=== PATIENT | male | born 1995 | race Caucasian/White ===

== ENCOUNTER 2017-12-07 23:16 | Emergency (ER) | payer BC ==
[2017-12-07 23:34] VITALS: RESP 18
[2017-12-07] MEDS ORDERED: KETOROLAC 60 MG/2 ML VIAL IM STA (23:46)
[2017-12-07] MEDS ORDERED: ORPHENADRINE 30 MG/ML 2 ML VIAL IM STA (23:46)
[2017-12-08] MEDS ORDERED: MORPHINE SULFATE 4 MG/ML SYRINGE IM STA (00:40)
--- NOTE | 2017-12-08 00:56 | ED ---
Back Pain HPI - General Chief Complaint: Back Pain/Injury Stated Complaint: Back Pain Time Seen by Provider: 12/07/17 23:36 Source: patient Limitations: no limitations - History of Present Illness Initial Comments: This patient is a 22-year-old man who presents to be evaluate for right lumbar back pain. The patient states that about 2-3 days ago while he was working he lifted something and had some mild pain in this right lower back. He states that he was doing fairly well known earlier today had been playing table tennis with a friend and aggravated the injury. Patient denies any change in bladder or bowel function. He denies saddle anesthesia. There is no weakness or numbness of the legs. The pain is constant, aching, severe. Pain gets worse with certain postures and is better if he remains still. MD Complaint: back injury -: days(s) Place: work Radiation: none Severity: severe Quality: aching Consistency: constant Improves With: none Worsens With: movement Associated Symptoms: denies other symptoms - Related Data Home Medications Medication Instructions Recorded Confirmed Ibuprofen [Motrin Ib] 400 mg PO Q6HR PRN 12/07/17 12/07/17 Previous Rx's Medication Instructions Recorded Ibuprofen [Motrin] 600 mg PO Q8HR PRN #20 tab 12/08/17 Methocarbamol [Robaxin-750] 750 mg PO TID PRN #30 tablet 12/08/17 Allergies Allergy/AdvReac Type Severity Reaction Status Date / Time No Known Allergies Allergy Verified 12/07/17 23:41 Review of Systems ROS Statement: Those systems with pertinent positive or pertinent negative responses have been documented in the HPI. ROS Other: All systems not noted in ROS Statement are negative. Constitutional: Denies: fever, chills, weakness Respiratory: Denies: cough, dyspnea Cardiovascular: Denies: chest pain Gastrointestinal: Denies: abdominal pain, vomiting, diarrhea Genitourinary: Denies: dysuria, hematuria Skin: Denies: rash Neurological: Denies: headache, weakness, numbness, paresthesias Past Medical History Past Medical History: No Reported History History of Any Multi-Drug Resistant Organisms: None Reported Past Surgical History: Tonsillectomy Past Psychological History: No Psychological Hx Reported Smoking Status: Never smoker Past Alcohol Use History: Occasional Past Drug Use History: None Reported General Exam Limitations: no limitations General appearance: alert, in no apparent distress Head exam: Present: atraumatic, normocephalic Eye exam: Present: normal appearance Neck exam: Present: normal inspection, full ROM Respiratory exam: Present: normal lung sounds bilaterally. Absent: respiratory distress, wheezes, rales, rhonchi, stridor Cardiovascular Exam: Present: regular rate, normal rhythm, normal heart sounds. Absent: systolic murmur, diastolic murmur, rubs, gallop GI/Abdominal exam: Present: soft. Absent: distended, tenderness, guarding, rebound, pulsatile mass Extremities exam: Present: normal inspection, normal capillary refill. Absent: pedal edema, calf tenderness Back exam: Present: normal inspection, paraspinal tenderness. Absent: CVA tenderness (R), CVA tenderness (L), vertebral tenderness Neurological exam: Present: alert, reflexes normal. Absent: motor sensory deficit Skin exam: Present: warm, dry, intact, normal color. Absent: rash Course Vital Signs 12/07/17 12/08/17 23:29 01:34 Temperature 98.7 F 97.7 F Pulse Rate 93 83 Respiratory 18 18 Rate Blood Pressure 120/72 136/77 O2 Sat by Pulse 98 98 Oximetry Disposition Clinical Impression: Mechanical back pain Disposition: HOME SELF-CARE Condition: Good Instructions: Acute Low Back Pain (ED) Prescriptions: Ibuprofen [Motrin] 600 mg PO Q8HR PRN #20 tab PRN Reason: Pain Methocarbamol [Robaxin-750] 750 mg PO TID PRN #30 tablet PRN Reason: pain Referrals: None,Stated [Primary Care Provider] - 1-2 days
[2017-12-08 01:36] VITALS: BP 136/77; PULSE 83; TEMP 97.7
== END 2017-12-08 01:34 | disposition home or self-care (01) ==
LOC: EC 23:16
DX: M54.5 Low back pain (principal); X50.1XXA Overexertion from prolonged static or awkward postures, initial encounter; Y93.89 Activity, other specified; Y92.69 Other specified industrial and construction area as the place of occurrence of the external cause; Y99.0 Civilian activity done for income or pay
CPT/HCPCS: 99283; 96372 ×3; J2270; J2360; J1885

== ENCOUNTER 2021-01-10 19:18 | Emergency (ER) | payer BC ==
[2021-01-10 19:53] VITALS: BP 132/85; PULSE 81; TEMP 98
[2021-01-10] MEDS ORDERED: DIPH,PERTUS(ACELL)TETVAC-LF 0.5 ML VIAL IM ONE (20:50)
--- NOTE | 2021-01-10 20:54 | ED ---
General Adult HPI - General Chief complaint: Burn/Smoke Inhalation Stated complaint: [facility]- Burn L Arm Time Seen by Provider: 01/10/21 20:20 Source: patient, RN notes reviewed Mode of arrival: ambulatory Limitations: no limitations - History of Present Illness Initial comments: Patient is a pleasant 45-year-old male presenting to the emergency department with concern with burn to his left forearm. Incident occurred at work prior to arrival. Patient was working over a hot metal drum when he slipped and touch the area with his left forearm for just a split second. Patient has discomfort in this area. No other area of injury or burn. No head injury or loss of consciousness. Unclear last tetanus immunization. - Related Data Home Medications Medication Instructions Recorded Confirmed Ibuprofen [Motrin Ib] 400 mg PO Q6HR PRN 12/07/17 12/07/17 Previous Rx's Medication Instructions Recorded Ibuprofen [Motrin] 600 mg PO Q8HR PRN #20 tab 12/08/17 Methocarbamol [Robaxin-750] 750 mg PO TID PRN #30 tablet 12/08/17 SILVER sulfADIAZINE Cream 1 applic TOPICAL BID #80 gram 01/10/21 [Silvadene 1% Cream] Allergies Allergy/AdvReac Type Severity Reaction Status Date / Time No Known Allergies Allergy Verified 01/10/21 19:53 Review of Systems ROS Statement: Those systems with pertinent positive or pertinent negative responses have been documented in the HPI. ROS Other: All systems not noted in ROS Statement are negative. Constitutional: Denies: fever Eyes: Denies: eye pain ENT: Denies: ear pain Respiratory: Denies: cough Cardiovascular: Denies: chest pain Endocrine: Denies: fatigue Gastrointestinal: Denies: abdominal pain Genitourinary: Denies: dysuria Musculoskeletal: Denies: back pain Skin: Reports: as per HPI Neurological: Denies: headache, weakness Past Medical History Past Medical History: No Reported History History of Any Multi-Drug Resistant Organisms: None Reported Past Surgical History: Adenoidectomy, Tonsillectomy Past Psychological History: No Psychological Hx Reported Smoking Status: Never smoker Past Alcohol Use History: Occasional Past Drug Use History: None Reported General Exam Limitations: no limitations General appearance: alert, in no apparent distress Head exam: Present: atraumatic Eye exam: Present: normal appearance Neck exam: Present: normal inspection. Absent: tenderness Respiratory exam: Present: normal lung sounds bilaterally Cardiovascular Exam: Present: regular rate, normal rhythm Expanded Peripheral pulses: 2+: Radial (L) GI/Abdominal exam: Present: soft. Absent: tenderness Extremities exam: Present: other (Burn left arm) Neurological exam: Present: alert. Absent: motor sensory deficit Psychiatric exam: Present: normal affect, normal mood Skin exam: Present: other (Left volar forearm with large area of burn distal to the elbow and proximal to the wrist. This encompasses approximately 60-70% on the volar surface. This is first-degree burn. There may be some area of minimal second-degree. Sensation is intact. No blistering.) Course Vital Signs 01/10/21 19:45 Temperature 98.0 F Pulse Rate 81 Respiratory 16 Rate Blood Pressure 132/85 O2 Sat by Pulse 99 Oximetry Disposition Clinical Impression: Burn of left forearm Disposition: HOME SELF-CARE Condition: Stable Instructions (If sedation given, give patient instructions): Superficial Burn (ED) Additional Instructions: Twice daily wash area with soap and water, apply Silvadene to affected area and bandage. Please follow-up with primary care physician or industrial health services in the next 24-48 hours for recheck. Return for increased pain, swelling, fevers, redness, worsening or changing symptoms or other concerns. Prescription sent to [facility]. Please keep area covered at all times. Prescriptions: SILVER sulfADIAZINE Cream [Silvadene 1% Cream] 1 applic TOPICAL BID #80 gram Is patient prescribed a controlled substance at d/c from ED?: No Referrals: Abel Davila MD [Primary Care Provider] - 1-2 days Time of Disposition: 20:53
[2021-01-10 21:02] VITALS: RESP 18
== END 2021-01-10 21:34 | disposition home or self-care (01) ==
LOC: EC 19:18
DX: T22.112A Burn of first degree of left forearm, initial encounter (principal); Z23 Encounter for immunization; X18.XXXA Contact with other hot metals, initial encounter; Y92.69 Other specified industrial and construction area as the place of occurrence of the external cause; Y99.0 Civilian activity done for income or pay
CPT/HCPCS: 90471; 90715; 99283

== ENCOUNTER → 2024-02-23 | Outpatient (CLI) | payer BC ==
--- NOTE | 2024-02-23 20:24 | CT ---
EXAMINATION TYPE: CT abdomen w con DATE OF EXAM: 02/23/2024 COMPARISON: None HISTORY: r/o umbilical hernia, states that blood has been coming out of belly button CT DLP: 3519.3 mGycm Automated exposure control for dose reduction was used. TECHNIQUE: Helical acquisition of images was performed from the lung bases through the top of iliac crest to include entire abdomen. CONTRAST: Performed with Oral Contrast and with IV Contrast, patient injected with 100 mL of Isovue 300. FINDINGS: The lung bases are clear. The gallbladder is normal without distention, wall thickening, pericholecystic fluid or gallstones. T here is no biliary ductal dilatation. There is no focal mass or organomegaly involving the liver, pancreas, spleen or adrenal glands. There is no solid renal mass or hydronephrosis and there is homogeneous contrast enhancement of the r enal parenchyma. The caliber the abdominal aorta is normal is no retroperitoneal adenopathy or hemorr josé luis. The bowel loops are normal in caliber and there is no evidence of dilatation or obstruction. No infla mmatory changes are identified in the bowel wall or mesentery. There is no free intraperitoneal air or fluid. The osseous structures and soft tissues are intact. IMPRESSION: No significant abnormality seen.
== END | disposition home or self-care (01) ==
LOC: RADCTMAIN 16:42
PROVIDERS: ATTEND Family Medicine
DX: K40.90 Unilateral inguinal hernia, without obstruction or gangrene, not specified as recurrent (principal)
CPT/HCPCS: 74160; Q9967